=== PATIENT | male | born 1995 | race Hispanic/Latino ===

== ENCOUNTER 2017-01-19 23:37 | Emergency (ER) | payer SELFPAY ==
[2017-01-20 00:05] VITALS: BP 121/61; PULSE 92; RESP 17; TEMP 97.9; O2SAT 97
[2017-01-20] MEDS ORDERED: Oxycodone/Acetaminophen 5/325 mg Tab PO STA (00:18)
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
[2017-01-20] MEDS ORDERED: Oxycodone/Acetaminophen 5/325 mg Tab ONE (00:33)
--- NOTE | 2017-01-20 09:18 | RAD ---
PROCEDURE: Left Hand Radiographs. HISTORY: pain s/p fall COMPARISON: None. FINDINGS: BONES: Three views of the left hand were performed for left hand pain and trauma. There is evidence of an angulated fracture of the distal left 5th metacarpal. In addition there is lucency and angulation identified in the proximal left 4th metacarpal also consistent with fracture. Overlying soft tissue swelling is noted. Carpal bones are intact. Phalanges are intact. No dislocation is seen. No lytic process is noted. JOINTS: No dislocation. See above. SOFT TISSUES: Dorsal soft tissue swelling and medial soft tissue swelling. OTHER FINDINGS: None. IMPRESSION: Fracture of the distal left 5th metacarpal and proximal left 4th metacarpal.
== END 2017-01-20 01:55 | disposition home or self-care (01) ==
LOC: H.ER 23:37
DX: S62.92XA Unspecified fracture of left hand, initial encounter for closed fracture (principal); W19.XXXA Unspecified fall, initial encounter; Y92.89 Other specified places as the place of occurrence of the external cause

== ENCOUNTER 2017-01-23 17:28 | Emergency (ER) | payer MEDICAID ==
[2017-01-23 17:41] VITALS: BP 121/66; PULSE 60; RESP 16; TEMP 97.7; O2SAT 98
--- NOTE | 2017-01-23 18:10 | ED PDOC ---
Upper Extremity Pain/Injury Time Seen by Provider: 01/23/17 17:40 Chief Complaint (Nursing): Wound Check Chief Complaint (Provider): follow up History Per: Patient History/Exam Limitations: no limitations Onset/Duration Of Symptoms: Days (x 4) Current Symptoms Are (Timing): Still Present Additional Complaint(s): Michael Bull is a 21 year old male, with no previous medical history, who presents to the ED for the evaluation of his left hand status post sustaining a fall 4 days ago. Pt was seen in the ED day of fall where he was given a follow up with a hand specialist. Pt states specialist does not accept his insurance and is requesting a specialist see him in the ED. Pt also states he needs more percocet for pain. PMD: none provided Past Medical History Reviewed: Historical Data, Nursing Documentation, Vital Signs Vital Signs: Last Vital Signs Temp 97.7 F 01/23/17 17:34 Pulse 60 01/23/17 17:34 Resp 16 01/23/17 17:34 BP 121/66 01/23/17 17:34 Pulse Ox 98 01/23/17 17:34 - Medical History PMH: Asthma - Family History Family History: States: Unknown Family Hx - Home Medications Home Medications: Ambulatory Orders Medication Instructions Recorded Ibuprofen [Motrin] 600 mg PO Q6 #20 tab 01/20/17 oxyCODONE/Acetaminophen [Percocet 1 ea PO Q6 PRN #5 tab 01/20/17 5/325 mg Tab] - Allergies Allergies/Adverse Reactions: Allergies Allergy/AdvReac Type Severity Reaction Status Date / Time No Known Allergies Allergy Verified 01/20/17 00:02 Review of Systems ROS Statement: Except As Marked, All Systems Reviewed And Found Negative (no medical complaints at this time.) Physical Exam - Reviewed Nursing Documentation Reviewed: Yes Vital Signs Reviewed: Yes - Physical Exam Appears: Positive for: Well, Non-toxic, No Acute Distress Head Exam: Positive for: ATRAUMATIC, NORMAL INSPECTION, NORMOCEPHALIC Skin: Positive for: Warm, Dry. Negative for: Normal Color ((+) ecchymosis, left hand) Respiratory: Negative for: Accessory Muscle Use Pulses-Radial (L): 2+ Extremity: Positive for: Tenderness (distal 5th metacarpal and proximal 4th metacarpal ), Capillary Refill (< 2 seconds ), Swelling (mild to the left hand) , Other (small area of ecchymosis to the medical posterior wrist) Neurologic/Psych: Positive for: Alert, Oriented - ECG O2 Sat by Pulse Oximetry: 98 (RA) Pulse Ox Interpretation: Normal Medical Decision Making Medical Decision Making: Initial Impression: follow up Pt had removed splint on his arrival to ER. New splint placed. Initial plan: * physical exam * disposition Pts girlfriend is present in room and is very agitated. She is raising her voice and states "no one is doing anything for us and we have been here twice". i try to explain seeing a specialist and the accounts payable supervisor number however she states "I don't want to here excuses, he needs surgery today." Scribe Attestation: Documented by Kendal Martinez, acting as a scribe for Ana Spencer PA-C. Provider Scribe Attestation: All medical record entries made by the Scribe were at my direction and personally dictated by me. I have reviewed the chart and agree that the record accurately reflects my personal performance of the history, physical exam, medical decision making, and the department course for this patient. I have also personally directed, reviewed, and agree with the discharge instructions and disposition. Disposition - Clinical Impression Clinical Impression: Hand fracture - Disposition Referrals: Casper Sharpe MD [Staff Provider] - [facility] [Outside] [facility] [Outside] Disposition: Routine/Home Disposition Time: 18:30 Condition: STABLE Additional Instructions: Ice, elevation. Motrin 800mg every 8 hours for pain. Please take with food. Please follow-up with orthopedics. Instructions: Hand Fracture (ED)
== END 2017-01-23 18:33 | disposition home or self-care (01) ==
LOC: H.ER 17:28
DX: S62.92XD Unspecified fracture of left hand, subsequent encounter for fracture with routine healing (principal)

== ENCOUNTER 2017-02-02 19:09 | Emergency (ER) | payer MEDICAID, OTHER ==
[2017-02-02 19:18] VITALS: BP 144/77; PULSE 88; RESP 18; TEMP 98.4; O2SAT 99
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
[2017-02-02 20:46] LABS: BASO % 0.3 % (0.0-2.0); EOS # 0.1 K/uL (0.0-0.7); EOS % 0.7 % (0.0-4.0); HEMATOCRIT 43.9 % (35.0-51.0); LYMPH # 2.1 K/uL (1.0-4.3); LYMPH % 27.5 % (20.0-40.0); MEAN CELL VOLUME 93.5 fl (80.0-94.0); MEAN CORPUSCULAR HEMOGLOBIN 31.6 pg (27.0-31.0); MEAN CORPUSCULAR HGB CONC 33.8 g/dL (33.0-37.0); MEAN PLATELET VOLUME 8.1 fl (7.2-11.7); MONO # 0.5 K/uL (0.0-0.8); MONO % 6.5 % (0.0-10.0); NRBC % 0.1 % (0.0-0.0); RED CELL DISTRIBUTION WIDTH 14.5 % (11.5-14.5); WHITE BLOOD COUNT 7.7 K/uL (4.8-10.8)
[2017-02-02 20:54] LABS: ALCOHOL SERUM < 10 mg/dl (0-10); BLOOD UREA NITROGEN 14 mg/dl (9-20); CALCIUM 9.7 mg/dL (8.4-10.2); CARBON DIOXIDE 26 mmol/L (22-30); CHLORIDE 102 mmol/L (98-107); GFR AFRICAN-AMERICAN > 60; GLUCOSE,RANDOM 90 mg/dL (75-110); SODIUM 144 mmol/l (132-148)
[2017-02-02 20:56] LABS: RBC URINE 2 /hpf (0-3); URINE BILIRUBIN NEGATIVE (NEGATIVE); URINE BLOOD NEGATIVE (NEGATIVE); URINE COLOR YELLOW (YELLOW); URINE GLUCOSE (UA) NEG (Normal); URINE KETONE TRACE mg/dL (NEGATIVE); URINE LEUKOCYTE ESTERASE NEG Leu/uL (Negative); URINE PROTEIN NEGATIVE (NEGATIVE); URINE UROBILINOGEN 0.2-1.0 mg/dL (0.2-1.0); WBC URINE < 1 /hpf (0-5)
== END 2017-02-02 21:48 | disposition home or self-care (01) ==
LOC: H.ER 19:09
DX: F43.20 Adjustment disorder, unspecified (principal)

== ENCOUNTER 2017-11-04 17:04 | Emergency (ER) | payer OTHER ==
[2017-11-04 17:08] VITALS: BP 152/93; PULSE 61; RESP 19; TEMP 97.6; O2SAT 100
[2017-11-04] MEDS ORDERED: Silver Sulfadiazine 1% CREAM (50 gm) TOP STA (17:21)
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
== END 2017-11-04 18:11 | disposition home or self-care (01) ==
LOC: H.ER 17:04
DX: T23.102A Burn of first degree of left hand, unspecified site, initial encounter (principal); X10.1XXA Contact with hot food, initial encounter; Y92.511 Restaurant or cafe as the place of occurrence of the external cause; J45.909 Unspecified asthma, uncomplicated

== ENCOUNTER 2017-11-08 06:44 | Emergency (ER) | payer OTHER ==
[2017-11-08 07:05] VITALS: BP 125/64; PULSE 70; RESP 18; TEMP 97.8; O2SAT 98
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
[2017-11-08] MEDS ORDERED: Silver Sulfadiazine 1% CREAM (50 gm) ONE (07:39)
== END 2017-11-08 08:30 | disposition home or self-care (01) ==
LOC: H.ER 06:44
DX: Z48.00 Encounter for change or removal of nonsurgical wound dressing (principal)

== ENCOUNTER 2017-12-06 14:40 | Emergency (ER) | payer OTHER ==
[2017-12-06 14:47] VITALS: BP 134/78; PULSE 68; RESP 18; TEMP 97; O2SAT 98
[2017-12-06] MEDS ORDERED: Bacitracin OINT 15GM TOP STA (14:55)
--- NOTE | 2017-12-06 15:04 | ED PDOC ---
HPI: General Adult Time Seen by Provider: 12/06/17 14:51 Chief Complaint (Nursing): Burn Chief Complaint (Provider): Burn History Per: Patient History/Exam Limitations: no limitations Onset/Duration Of Symptoms: Days (x1) Current Symptoms Are (Timing): Still Present Additional Complaint(s): Michael Bull is a 22 year old male brought to the emergency department for evaluation of chow sustained today. Patient states that while cooking at work, a hot can of condensed milk exploded, resulting in chow to his face at the left of nose, and above his left eyebrow. Tetanus is up to date. PMD: None Past Medical History Reviewed: Historical Data, Nursing Documentation, Vital Signs Vital Signs: Last Vital Signs Temp 97 F L 12/06/17 14:45 Pulse 68 12/06/17 14:45 Resp 18 12/06/17 14:45 BP 134/78 12/06/17 14:45 Pulse Ox 98 12/06/17 15:03 - Medical History PMH: Asthma, Fractures (to left hand after punching a wall) Denies: Diabetes, Hepatitis, HIV, HTN, Seizures, Sexually Transmitted Disease - Family History Family History: States: Unknown Family Hx - Home Medications Home Medications: Ambulatory Orders Medication Instructions Recorded Ibuprofen [Motrin] 600 mg PO Q6 #20 tab 01/20/17 oxyCODONE/Acetaminophen [Percocet 1 ea PO Q6 PRN #5 tab 01/20/17 5/325 mg Tab] Ibuprofen [Motrin Tab] 600 mg PO Q8 PRN #60 tab 11/04/17 Non-Adherent Bandage [Telfa] 1 each TP BID #50 bandage 11/04/17 Silver Sulfadiazine 1% 50 gm 1 applic TOP BID #1 jar 11/04/17 [Silvadene 1% 50 gm] traMADol [Ultram] 50 mg PO TID PRN #15 tab 11/04/17 - Allergies Allergies/Adverse Reactions: Allergies Allergy/AdvReac Type Severity Reaction Status Date / Time No Known Allergies Allergy Verified 11/08/17 06:58 Review of Systems ROS Statement: Except As Marked, All Systems Reviewed And Found Negative Skin: Positive for: Other (burn to left side of face) Physical Exam - Reviewed Nursing Documentation Reviewed: Yes Vital Signs Reviewed: Yes - Physical Exam Appears: Positive for: Non-toxic, No Acute Distress Head Exam: Positive for: ATRAUMATIC, NORMOCEPHALIC Skin: Positive for: Normal Color (with facial burn: less than 1 %. Multiple non- intact vesicles to left cheek, left side of nose, with mild erythema noted to left side of forehead) Eye Exam: Positive for: EOMI, Normal appearance, PERRL ENT: Positive for: Normal ENT Inspection, TM Is/Are (normal) Neurologic/Psych: Positive for: Alert, Oriented - ECG O2 Sat by Pulse Oximetry: 98 (RA) Pulse Ox Interpretation: Normal Medical Decision Making Medical Decision Making: Initial Impression: Superficial Burn Time: 14:54 Initial Plan: Bacitracin applied to burn area. Will d/c with Rx for bacitracin ointment. Advised to follow up with burn center, referral provided for [facility]. Scribe Attestation: Documented by Marie Avery, acting as a scribe for Jass West PA-C Provider Scribe Attestation: All medical record entries made by the Scribe were at my direction and personally dictated by me. I have reviewed the chart and agree that the record accurately reflects my personal performance of the history, physical exam, medical decision making, and the department course for this patient. I have also personally directed, reviewed, and agree with the discharge instructions and disposition. Disposition - Clinical Impression Clinical Impression: Burn - Patient ED Disposition Is Patient to be Admitted: No Counseled Patient/Family Regarding: Diagnosis, Need For Followup, Rx Given - Disposition Referrals: Amisha Montejo [Outside] Disposition: Routine/Home Disposition Time: 15:02 Condition: STABLE Additional Instructions: Apply bacitracin ointment to face. Follow up with [facility]. Address: [address] [place] [address] Instructions: Superficial Burn (ED) Forms: [facility] (Arabic) Print Language: LAO - POA Present On Arrival: None
[2017-12-06] MEDS ORDERED: Bacitracin 500 Units/gm Oint Foilpak UD TOP STA (15:29)
== END 2017-12-06 16:30 | disposition home or self-care (01) ==
LOC: H.ER 14:40
DX: T20.00XA Burn of unspecified degree of head, face, and neck, unspecified site, initial encounter (principal); X10.1XXA Contact with hot food, initial encounter; Y99.0 Civilian activity done for income or pay